=== PATIENT | female | born 1970 | race Two or more races ===

== ENCOUNTER 2019-07-04 12:46 | Emergency (ER) | payer MEDICAID, OTHER ==
[~2019-07-04] VITALS: Ht 160 cm; Wt 81.6 kg
[2019-07-04 15:02] VITALS: BP 132/82
[2019-07-04] MEDS ORDERED: HYDROcodone-ACET 5/325MG TAB PO ONE (16:30)
== END 2019-07-04 17:19 | disposition home or self-care (01) ==
LOC: ER 12:52
DX: S70.02XA Contusion of left hip, initial encounter (principal); V49.69XA Unspecified car occupant injured in collision with other motor vehicles in traffic accident, initial encounter; Y93.89 Activity, other specified; Y99.8 Other external cause status; Y92.488 Other paved roadways as the place of occurrence of the external cause
CPT/HCPCS: 72125; 72131; 72192